=== PATIENT | male | born 1975 | race Caucasian/White ===

== ENCOUNTER → 2019-02-01 19:00 | Outpatient (CLI) | payer OTHER, SELFPAY ==
[2019-02-01 21:28] LABS: HIV 1 and 2 Antibody NEGATIVE (NEGATIVE); Hep C Virus Ab w/Reflex Quant NEGATIVE s/c (NEGATIVE)
[2019-02-01 21:36] LABS: Urine Chlamydia NOT DETECTED; Urine N gonorrhoeae NOT DETECTED
[2019-02-05 15:57] LABS: HSV 1 IgM Screen Negative (Negative); HSV 2 IgM Screen Negative (Negative)
[2019-02-05 22:43] LABS: RPR Screen Nonreactive (Nonreactive)
[2019-02-06 16:19] LABS: Hepatitis B Core Antibody Nonreactive (Nonreactive)
== END ==
PROVIDERS: Visit Provider Physician Assistant
DX: Z11.3 Encounter for screening for infections with a predominantly sexual mode of transmission (principal)
CPT/HCPCS: 86592; 86694; 86703; 86704; 86803; 87491; 87591

== ENCOUNTER → 2019-08-31 10:27 | Outpatient (CLI) | payer OTHER, SELFPAY ==
--- NOTE | 2019-08-31 10:29 | DI.RAD.S_ITS ---
PROCEDURE: XR KNEE LT 3V INDICATIONS: twisted L knee TECHNIQUE: 3 views of the knee were acquired. COMPARISON: None. 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 No suspicious bony lesions. Soft tissues: Very small suprapatellar joint effusion. No suspicious soft tissue calcifications. 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 Please correlate clinically. Dictated by: Greg Correa M.D. on 08/31/2019 at 11:00 Approved by: Greg Correa M.D. on 08/31/2019 at 11:01
== END ==
PROVIDERS: Visit Provider Nurse Practitioner
DX: M25.562 Pain in left knee (principal); M25.462 Effusion, left knee
CPT/HCPCS: 73562

== ENCOUNTER → 2020-05-26 12:17 | Outpatient (CLI) | payer OTHER, SELFPAY ==
--- NOTE | 2020-05-26 | DI.RAD.S_ITS ---
PROCEDURE: XR FOOT RT MIN 3V INDICATIONS: PAIN IN RIGHT FOOT TECHNIQUE: 3 views of the foot were acquired. COMPARISON: None. FINDINGS: Bones: No fractures or dislocations. No suspicious bony lesions. Small plantar calcaneal enthesophyte. Soft tissues: No tibiotalar joint effusion. Achilles tendon appears normal. IMPRESSION: Small plantar calcaneal enthesophyte; otherwise normal bony alignment. Dictated by: Luis Miguel Russo [facility] Interpreted: Waldo Alvarez MD on 05/26/2020 at 14:19 Approved by: Waldo Alvarez M.D. on 05/26/2020 at 18:23
== END ==
PROVIDERS: Referring Provider Physician Assistant; Visit Provider Physician Assistant
DX: M79.671 Pain in right foot (principal); M77.31 Calcaneal spur, right foot
CPT/HCPCS: 73630